=== PATIENT | female | born 1950 ===

== ENCOUNTER → 2017-06-08 14:32 | Outpatient (CLI) | payer OTHER ==
[~2017-06-08 14:32] MED LIST: SYNTHROID112 MCG; TOPROL XL25 M1
== END | disposition home or self-care (01) ==
LOC: PPHC 14:32
DX: J06.9 Acute upper respiratory infection, unspecified (principal); R50.9 Fever, unspecified

== ENCOUNTER → 2017-06-08 17:37 | Outpatient (CLI) | payer OTHER | END | disposition home or self-care (01) | LOC: LAB 17:37 | DX: J06.9 Acute upper respiratory infection, unspecified (principal); J11.1 Influenza due to unidentified influenza virus with other respiratory manifestations ==

== ENCOUNTER → 2020-01-20 15:12 | Outpatient (CLI) | payer OTHER ==
[~2020-01-20 15:12] MED LIST changes: +BACLOFEN20 MG PO; +GABAPENTIN400 MG PO; +HYZAAR 100-12.1 EACH PO; +MEDROLPACK PO; +SKELAXIN800 MG PO; +TIZANIDINE HCL2 MG PO
== END | disposition home or self-care (01) ==
LOC: LAB 15:12
PROVIDERS: ATTEND Physical Medicine & Rehabilitation
DX: Z20.828 Contact with and (suspected) exposure to other viral communicable diseases (principal); Z03.818 Encounter for observation for suspected exposure to other biological agents ruled out